=== PATIENT | male | born 1950 | race African-American/Black ===

== ENCOUNTER 2016-06-27 14:29 | Emergency (ER) | payer MEDICARE ==
[~2016-06-27 14:29] MED LIST: AMLO10TA2 PO; AMLODIPINE; ATOR20TA58 PO; DOXA2TAB2 PO; IBUP-1027 PO; LOVASTATIN; OXYC-244 PO; OXYC-323 PO; TRIA1TAB5 PO; TRIAMTERENE
--- NOTE | 2016-06-27 15:24 | PHYS DOC ---
Past Medical History Past Medical History: High Cholesterol, Hypertension Past Surgical History: Other Additional Past Surgical Histo: BILAT ELBOW SX, R CARPAL TUNNEL, R ACHILLES, L KNEE SX Alcohol Use: None Drug Use: None Adult General Chief Complaint Chief Complaint: CHEST PAIN HPI HPI 66-year-old male has several day history of cough congestion and upper respiratory type symptoms. He states over the last 2 days he's got some burning in his esophagus and a dry hacking cough. Denies any fever chills or sweats. He' s had no significant shortness of breath dyspnea on exertion. He states he is not currently having any pain and he says the pain seems to be worse when he lies flat. He denies any abdominal pain. He states the primary thing that is bothering him now is the cough. [] Review of Systems Review of Systems Constitutional: Denies fever or chills [] Eyes: Denies change in visual acuity, redness, or eye pain [] HENT: Denies nasal congestion or sore throat [] Respiratory: Denies cough or shortness of breath [] Cardiovascular: No additional information not addressed in HPI [] GI: Denies abdominal pain, nausea, vomiting, bloody stools or diarrhea [] : Denies dysuria or hematuria [] Musculoskeletal: Denies back pain or joint pain [] Integument: Denies rash or skin lesions [] Neurologic: Denies headache, focal weakness or sensory changes [] Endocrine: Denies polyuria or polydipsia [] Allergies Allergies Allergies Coded Allergies Type Severity Reaction Last Updated Verified codeine Allergy Intermediate Itching 02/15/15 No Physical Exam Physical Exam Constitutional: Well developed, well nourished, no acute distress, non-toxic appearance. [] HENT: Normocephalic, atraumatic, bilateral external ears normal, oropharynx moist, no oral exudates, nose normal. [] Eyes: PERRLA, EOMI, conjunctiva normal, no discharge. [] Neck: Normal range of motion, no tenderness, supple, no stridor. [] Cardiovascular:Heart rate regular rhythm, no murmur [] Lungs & Thorax: Bilateral breath sounds clear to auscultation [] Abdomen: Bowel sounds normal, soft, no tenderness, no masses, no pulsatile masses. [] Skin: Warm, dry, no erythema, no rash. [] Back: No tenderness, no CVA tenderness. [] Extremities: No tenderness, no cyanosis, no clubbing, ROM intact, no edema. [] Neurologic: Alert and oriented X 3, normal motor function, normal sensory function, no focal deficits noted. [] Psychologic: Affect normal, judgement normal, mood normal. [] Current Patient Data Vital Signs Vital Signs Date Time Temp Pulse Resp B/P Pulse Ox O2 Delivery O2 Flow Rate FiO2 06/27/16 14:41 98.2 78 20 149/76 95 Room Air 98.2 Lab Values Laboratory Tests Test 06/27/16 14:55 White Blood Count 5.0x10^3/uL (4.0-11.0) Red Blood Count 5.55x10^6/uL (4.30-5.70) Hemoglobin 14.5g/dL (13.0-17.5) Hematocrit 44.8% (39.0-53.0) Mean Corpuscular Volume 81fL (79-100) Mean Corpuscular Hemoglobin 26pg (25-35) Mean Corpuscular Hemoglobin Concent 32g/dL (31-37) Red Cell Distribution Width 15.1% (11.5-14.5) H Platelet Count 183x10^3/uL (140-400) Neutrophils (%) (Auto) 52% (31-73) Lymphocytes (%) (Auto) 24% (24-48) Monocytes (%) (Auto) 15% (0-9) H Eosinophils (%) (Auto) 8% (0-3) H Basophils (%) (Auto) 1% (0-3) Neutrophils # (Auto) 2.6x10^3uL (1.8-7.7) Lymphocytes # (Auto) 1.2x10^3/uL (1.0-4.8) Monocytes # (Auto) 0.7x10^3/uL (0.0-1.1) Eosinophils # (Auto) 0.4x10^3/uL (0.0-0.7) Basophils # (Auto) 0.1x10^3/uL (0.0-0.2) Platelet Estimate Pending Sodium Level 142mmol/L (136-145) Potassium Level 3.6mmol/L (3.5-5.1) Chloride Level 104mmol/L (98-107) Carbon Dioxide Level 31mmol/L (21-32) Anion Gap 7 (6-14) Blood Urea Nitrogen 17mg/dL (8-26) Creatinine 1.6mg/dL (0.7-1.3) H Estimated GFR (Cockcroft-Gault) 52.8 BUN/Creatinine Ratio 11 (6-20) Glucose Level 126mg/dL (70-99) H Calcium Level 9.3mg/dL (8.5-10.1) Total Bilirubin 0.4mg/dL (0.2-1.0) Aspartate Amino Transferase (AST) 43U/L (15-37) H Alanine Aminotransferase (ALT) 66U/L (16-63) H Alkaline Phosphatase 60U/L (46-116) Troponin I Quantitative < 0.017ng/mL (0.000-0.055) CF-Ipw-W-Type Natriuretic Peptide 18pg/mL (0-124) Total Protein 7.9g/dL (6.4-8.2) Albumin 3.9g/dL (3.4-5.0) Albumin/Globulin Ratio 1.0 (1.0-1.7) Laboratory Tests 06/27/16 14:55 Laboratory Tests 06/27/16 14:55 EKG EKG [EKG: Normal sinus rhythm rate of [address]-T changes] Radiology/Procedures Radiology/Procedures [] Impressions: PROCEDURE: CHEST AP ONLY Portable chest, 06/27/2016: History: Flulike symptoms Comparison is made to a study from 02/04/2015. The heart size and pulmonary vascularity are normal. No pulmonary infiltrates are seen. There is no evidence of pleural fluid. IMPRESSION: No acute cardiopulmonary abnormality is detected. Course & Med Decision Making Course & Med Decision Making Pertinent Labs and Imaging studies reviewed. (See chart for details) [] Dragon Disclaimer Dragon Disclaimer This electronic medical record was generated, in whole or in part, using a voice recognition dictation system. Departure Departure Impression: Primary Impression: Upper respiratory infection Additional Impression: Gastroesophageal reflux disease Disposition: HOME, SELF-CARE Condition: STABLE Referrals: MIGUELINA DE SOUZA MD (PCP) Patient Instructions: Upper Respiratory Infection, Adult Additional Instructions: Thank you for allowing us to participate in your care today. Followup with your primary care physician in 3 days if your symptoms do not improve. Return to the emergency department you have any new or concerning findings. This should be evaluated by the primary care physician and any necessary consulting services for continued management within a few days after discharge. Return to emergency room if you have any new or concerning symptoms including but not limited to fever, chills, nausea, vomiting, intractable pain, any new rashes, chest pain, shortness of air, uncontrolled bleeding, difficulty breathing, and/or vision loss. You may have been prescribed medication that can change in your level of thinking and ability to operate machinery. These medications include hydrocodone and Ativan. Also, Benadryl has been known to do this as well. Be sure to check with your pharmacist and ask if the medications you've prescribed can affect your level of consciousness. I recommend not operating heavy machinery or driving while on medication such as these. Scripts Ranitidine Hcl (Zantac)300 Mg Tablet1 Tab PO QHS reflux #90 TAB Ref 3 Prov:ANA MARÍA GOODRICH DO 06/27/16 Albuterol Sulfate (Proventil Hfa Inhaler)6.7 Gm Hfa.aer.ad1 Puff IH PRN Q4HRS PRN asthma #1 INHALER NS Prov:ANA MARÍA GOODRICH DO 06/27/16 Problem Qualifiers Primary Impression: Upper respiratory infection URI type: unspecified viral URI Qualified Code: J06.9 - Acute upper respiratory infection, unspecified Additional Impression: Gastroesophageal reflux disease Esophagitis presence: without esophagitis Qualified Code: K21.9 - Gastro- esophageal reflux disease without esophagitis ANA MARÍA GOODRICH DO Jun 27, 2016 15:24
[2016-06-27 15:34] LABS: BASO # 0.1 x10^3/uL (0.0-0.2); BASO % 1 % (0-3); EOS % 8 % (0-3); HEMATOCRIT 44.8 % (39.0-53.0); HEMOGLOBIN 14.5 g/dL (13.0-17.5); LYMPH # 1.2 x10^3/uL (1.0-4.8); LYMPH % 24 % (24-48); MEAN CORPUSCULAR HEMOGLOBIN 26 pg (25-35); MEAN CORPUSCULAR HGB CONC 32 g/dL (31-37); MEAN CORPUSCULAR VOLUME 81 fL (79-100); MONO % 15 % (0-9); NEUT % 52 % (31-73); PLATELET COUNT 183 x10^3/uL (140-400); RED BLOOD COUNT 5.55 x10^6/uL (4.30-5.70); RED CELL DISTRIBUTION WIDTH 15.1 % (11.5-14.5)
--- NOTE | 2016-06-27 15:37 | RAD ---
Portable chest, 06/27/2016: History: Flulike symptoms Comparison is made to a study from 02/04/2015. The heart size and pulmonary vascularity are normal. No pulmonary infiltrates are seen. There is no evidence of pleural fluid. IMPRESSION: No acute cardiopulmonary abnormality is detected.
[2016-06-27 15:42] LABS: CALCIUM 9.3 mg/dL (8.5-10.1); CREATININE 1.6 mg/dL (0.7-1.3); GFR 52.8; POTASSIUM 3.6 mmol/L (3.5-5.1)
[2016-06-27 15:49] LABS: ALBUMIN 3.9 g/dL (3.4-5.0); TOTAL BILIRUBIN 0.4 mg/dL (0.2-1.0); TOTAL PROTEIN 7.9 g/dL (6.4-8.2)
--- NOTE | 2016-06-27 16:33 | EKG ---
[facility] [address] [place] [address] Test Date: 2016-06-27 Test Time: 14:36:04 Pat Name: FRANKLIN COVINGTON Department: Room: Gender: M Managed Care Director: : 1950 Requested By: ANA MARÍA GOODRICH Order Number: [id number] Reading MD: Measurements Intervals [place] Rate: 79 P: 57 [place]: 184 QRS: 36 QRSD: 84 T: 69 QT: 374 QTc: 435 Interpretive Statements SINUS RHYTHM QRS(T) CONTOUR ABNORMALITY CONSIDER INFERIOR MYOCARDIAL DAMAGE T ABNORMALITY IN HIGH LATERAL LEADS RI6.01 Unconfirmed report No previous ECG available for comparison
[2016-06-27 16:45] VITALS: BP 128/61
[2016-06-27] MEDS ORDERED: RANI300T3 PO (17:24)
[2016-06-27] MEDS ORDERED: PROVENTIL HFA6.7 GM IH (17:24)
[2016-06-27 18:12] LABS: PLT ESTIMATE ADEQUATE (ADEQUATE)
== END 2016-06-27 17:46 | disposition home or self-care (01) ==
LOC: ER 14:29
DX: J06.9 Acute upper respiratory infection, unspecified (principal); K21.9 Gastro-esophageal reflux disease without esophagitis; E78.00 Pure hypercholesterolemia, unspecified; I10 Essential (primary) hypertension; Z88.5 Allergy status to narcotic agent
CPT/HCPCS: 36415; 71010; 80053; 83880; 84484; 85007; 85027; 93005; 99285

== ENCOUNTER 2016-12-02 19:35 | Inpatient (IN) | payer BC, MEDICARE ==
[~2016-12-02] VITALS: Ht 172.7 cm; Wt 111.7 kg
[~2016-12-02 19:35] MED LIST changes: -OXYC-244 PO; +OXYC-327 PO; +PROVENTIL HFA6.7 GM IH; +RANI300T3 PO
[2016-12-02 19:57] LABS: BASO # 0.1 x10^3/uL (0.0-0.2); BASO % 1 % (0-3); EOS % 16 % (0-3); HEMATOCRIT 44.3 % (39.0-53.0); HEMOGLOBIN 14.2 g/dL (13.0-17.5); LYMPH # 2.3 x10^3/uL (1.0-4.8); LYMPH % 36 % (24-48); MEAN CORPUSCULAR HEMOGLOBIN 27 pg (25-35); MEAN CORPUSCULAR HGB CONC 32 g/dL (31-37); MEAN CORPUSCULAR VOLUME 83 fL (79-100); MONO % 9 % (0-9); NEUT % 38 % (31-73); PLATELET COUNT 199 x10^3/uL (140-400); RED BLOOD COUNT 5.33 x10^6/uL (4.30-5.70); RED CELL DISTRIBUTION WIDTH 15.1 % (11.5-14.5); WHITE BLOOD COUNT 6.4 x10^3/uL (4.0-11.0)
[2016-12-02] MEDS ORDERED: IV NORMAL SALINE 1000ML BAG 1,000 ML IV SCH (20:00)
[2016-12-02] MEDS ORDERED: methylPREDNISolone SOD SUCC PF 125 MG/2 ML VIAL. ONE (20:21)
[2016-12-02] MEDS ORDERED: IPRATRPIUM/ALBUTEROL 0.5/2.5MG 3 ML NEBU. ONE (20:24)
[2016-12-02] MEDS ORDERED: methylPREDNISolone SOD SUCC PF 125 MG/2 ML VIAL. IV ONE (20:30)
[2016-12-02] MEDS ORDERED: IPRATRPIUM/ALBUTEROL 0.5/2.5MG 3 ML NEBU. NEB ONE ×2 (20:30→23:00)
[2016-12-02] MEDS ORDERED: ONDANSETRON PF 4 MG/2 ML VIAL. ONE (20:43)
[2016-12-02 20:56] LABS: CALCIUM 9.9 mg/dL (8.5-10.1); CREATININE 1.4 mg/dL (0.7-1.3); GFR 61.5; POTASSIUM 3.2 mmol/L (3.5-5.1)
[2016-12-02] MEDS ORDERED: ONDANSETRON PF 4 MG/2 ML VIAL. IV ONE (21:00)
[2016-12-02 21:02] LABS: ALBUMIN 3.9 g/dL (3.4-5.0); TOTAL BILIRUBIN 0.4 mg/dL (0.2-1.0); TOTAL PROTEIN 7.7 g/dL (6.4-8.2)
--- NOTE | 2016-12-02 21:51 | PHYS DOC ---
Past Medical History Past Medical History: High Cholesterol, Hypertension Past Surgical History: Other Additional Past Surgical Histo: BILAT ELBOW SX, R CARPAL TUNNEL, R ACHILLES, L KNEE SX Alcohol Use: None Drug Use: None Adult General Chief Complaint Chief Complaint: Palpitations HPI HPI 66-year-old male with a history of COPD now presents to the emergency department complaining of palpitations and wheezing. He has been using a metered dose inhaler but states he's had a productive cough green sputum as well. No fevers chills sweats or shaking chills. He is more short of breath than normal. Denies chest pain of any kind. Patient's reports intermittent palpitations. He has no lower extremity swelling MARAVILLA or orthopnea. He does not have a obstetrics specialist nor has he had a history of arrhythmia Review of Systems Review of Systems Constitutional: Denies fever or chills [] Eyes: Denies change in visual acuity, redness, or eye pain [] HENT: Denies nasal congestion or sore throat [] Respiratory: Denies cough or shortness of breath [] Cardiovascular: No additional information not addressed in HPI [] GI: Denies abdominal pain, nausea, vomiting, bloody stools or diarrhea [] : Denies dysuria or hematuria [] Musculoskeletal: Denies back pain or joint pain [] Integument: Denies rash or skin lesions [] Neurologic: Denies headache, focal weakness or sensory changes [] Endocrine: Denies polyuria or polydipsia [] Current Medications Current Medications Current Medications Medications (Trade) Dose Ordered Sig/Fanny Start Time Stop Time Status Last Admin Dose Admin Albuterol/ Ipratropium (Duoneb) 3 ml 1X ONCE 12/02/16 20:30 12/02/16 20:32 DC 12/02/16 20:33 3 ML Methylprednisolone Sodium Succinate (SOLU-Medrol 125MG VIAL) 125 mg 1X ONCE 12/02/16 20:30 12/02/16 20:32 DC 12/02/16 20:35 125 MG Ondansetron HCl (Zofran) 4 mg 1X ONCE 12/02/16 21:00 12/02/16 21:01 DC 12/02/16 20:48 4 MG Sodium Chloride 1,000 ml @ 100 mls/hr Q10H 12/02/16 20:00 12/03/16 05:59 12/02/16 20:33 100 MLS/HR Allergies Allergies Allergies Coded Allergies Type Severity Reaction Last Updated Verified codeine Allergy Intermediate Itching 02/15/15 No Physical Exam Physical Exam Well appearing male in mild tachypnea with bilateral bronchospasm. Scattered rhonchi. Hypoxic 89% on room air 94% on 2 L. Regular rate and rhythm. Occasional bigeminy on the monitor with spontaneous resolution. Constitutional: Well developed, well nourished, no acute distress, non-toxic appearance. [] HENT: Normocephalic, atraumatic, bilateral external ears normal, oropharynx moist, no oral exudates, nose normal. [] Eyes: PERRLA, EOMI, conjunctiva normal, no discharge. [] Neck: Normal range of motion, no tenderness, supple, no stridor. [] Cardiovascular:Heart rate regular rhythm, no murmur [] Lungs & Thorax: Bilateral breath sounds with wheezing and bronchospasm and scattered rhonchi Abdomen: Bowel sounds normal, soft, no tenderness, no masses, no pulsatile masses. [] Skin: Warm, dry, no erythema, no rash. [] Back: No tenderness, no CVA tenderness. [] Extremities: No tenderness, no cyanosis, no clubbing, ROM intact, no edema. [] Neurologic: Alert and oriented X 3, normal motor function, normal sensory function, no focal deficits noted. [] Psychologic: Affect normal, judgement normal, mood normal. [] Current Patient Data Vital Signs Vital Signs Date Time Temp Pulse Resp B/P (MAP) Pulse Ox O2 Delivery O2 Flow Rate FiO2 12/02/16 20:30 94 Nasal Cannula 2.0 12/02/16 19:40 98.3 68 20 180/84 (116) 98.3 Lab Values Laboratory Tests Test 12/02/16 19:46 12/02/16 20:25 White Blood Count 6.4 x10^3/uL (4.0-11.0) Red Blood Count 5.33 x10^6/uL (4.30-5.70) Hemoglobin 14.2 g/dL (13.0-17.5) Hematocrit 44.3 % (39.0-53.0) Mean Corpuscular Volume 83 fL (79-100) Mean Corpuscular Hemoglobin 27 pg (25-35) Mean Corpuscular Hemoglobin Concent 32 g/dL (31-37) Red Cell Distribution Width 15.1 % (11.5-14.5) H Platelet Count 199 x10^3/uL (140-400) Neutrophils (%) (Auto) 38 % (31-73) Lymphocytes (%) (Auto) 36 % (24-48) Monocytes (%) (Auto) 9 % (0-9) Eosinophils (%) (Auto) 16 % (0-3) H Basophils (%) (Auto) 1 % (0-3) Neutrophils # (Auto) 2.5 x10^3uL (1.8-7.7) Lymphocytes # (Auto) 2.3 x10^3/uL (1.0-4.8) Monocytes # (Auto) 0.6 x10^3/uL (0.0-1.1) Eosinophils # (Auto) 1.0 x10^3/uL (0.0-0.7) H Basophils # (Auto) 0.1 x10^3/uL (0.0-0.2) Sodium Level 142 mmol/L (136-145) Potassium Level 3.2 mmol/L (3.5-5.1) L Chloride Level 103 mmol/L (98-107) Carbon Dioxide Level 28 mmol/L (21-32) Anion Gap 11 (6-14) Blood Urea Nitrogen 14 mg/dL (8-26) Creatinine 1.4 mg/dL (0.7-1.3) H Estimated GFR (Cockcroft-Gault) 61.5 BUN/Creatinine Ratio 10 (6-20) Glucose Level 112 mg/dL (70-99) H Calcium Level 9.9 mg/dL (8.5-10.1) Total Bilirubin 0.4 mg/dL (0.2-1.0) Aspartate Amino Transferase (AST) 38 U/L (15-37) H Alanine Aminotransferase (ALT) 56 U/L (16-63) Alkaline Phosphatase 74 U/L (46-116) Troponin I Quantitative < 0.017 ng/mL (0.000-0.055) Total Protein 7.7 g/dL (6.4-8.2) Albumin 3.9 g/dL (3.4-5.0) Albumin/Globulin Ratio 1.0 (1.0-1.7) Laboratory Tests 12/02/16 19:46 Laboratory Tests 12/02/16 20:25 EKG EKG [] Radiology/Procedures Radiology/Procedures [] Course & Med Decision Making Course & Med Decision Making Pertinent Labs and Imaging studies reviewed. (See chart for details) Signs and symptoms consistent with COPD exacerbation refractory to nebulized therapy and respiratory treatments. Steroids given. X-ray unremarkable. Zithromax will be administered. Persistent hypoxia after treatment. 94% on 2 L nasal cannula. Patient's bigeminy unremarkable with spontaneous resolution. EKG benign with negative troponin. Case discussed with patient's primary care doctor who is aware of history and findings and agrees with inpatient admission with Zithromax by mouth treatment for bronchitis supplemental oxygen and continued respiratory therapy. [] Dragon Disclaimer Dragon Disclaimer This electronic medical record was generated, in whole or in part, using a voice recognition dictation system. Departure Departure Impression: Primary Impression: COPD exacerbation Additional Impressions: Hypoxia Palpitations Bigeminy Disposition: ADMITTED INPATIENT Admitting Physician: Abdirahman Dejesus Condition: STABLE Referrals: MIGUELINA DE SOUZA MD (PCP) Problem Qualifiers FRANCINE KOHLER MD Dec 02, 2016 21:51
[2016-12-02] MEDS ORDERED: POTASSIUM CHLORIDE 20 MEQ TABLET.ER. PO ONE (22:00)
[2016-12-02 22:50] VITALS: BP 142/82
[2016-12-02] MEDS ORDERED: AZITHROMYCIN 250 MG TABLET. PO ONE (23:00)
[2016-12-03] MEDS ORDERED: FLUO10TA PO (01:43)
[2016-12-03] MEDS ORDERED: DEXA5DRO4 OP (01:43)
[2016-12-03] MEDS ORDERED: ZOLP10TA PO (01:43)
[2016-12-03 03:15] VITALS: BP 146/80
--- NOTE | 2016-12-03 06:10 | EKG ---
[facility] [address] [place] [address] Test Date: 2016-12-02 Test Time: 19:40:24 Pat Name: FRANKLIN COVINGTON Department: Room: 426 1 Gender: M Surveillance Specialist: : 1950 Requested By: FRANCINE KOHLER Order Number: [id number] Reading MD: Lizzeth Arias Measurements Intervals [place] Rate: 69 P: 34 TN: 176 QRS: 36 QRSD: 86 T: 74 QT: 432 QTc: 465 Interpretive Statements SINUS RHYTHM NORMAL EKG Electronically Signed On 12-04-2016 20:08:31 CDT by Lizzeth Arias
[2016-12-03 07:00] VITALS: BP 147/74
--- NOTE | 2016-12-03 08:53 | PDOC1 ---
History and Physical Date of Admission Date of Admission DATE: 12/02/16 TIME: 08:51 History of Present Illness History of Present Illness dyspnea Social History Smoke: No Current Problem List Problem List Problems Medical Problems: (1) Bigeminy Status: Acute (2) COPD exacerbation Status: Acute (3) Hypoxia Status: Acute (4) Palpitations Status: Acute Problems: Current Medications Current Medications Current Medications Sodium Chloride 1,000 ml @ 100 mls/hr Q10H IV Last administered on 12/02/16 20 :33; Start 12/02/16 at 20:00; Stop 12/03/16 at 05:59; Status DC Methylprednisolone Sodium Succinate (SOLU-Medrol 125MG VIAL) 125 mg STK-MED ONCE .ROUTE ; Start 12/02/16 at 20:21; Stop 12/02/16 at 20:22; Status DC Albuterol/ Ipratropium (Duoneb) 3 ml STK-MED ONCE .ROUTE ; Start 12/02/16 at 20: 24; Stop 12/02/16 at 20:25; Status DC Albuterol/ Ipratropium (Duoneb) 3 ml 1X ONCE NEB Last administered on 20:33; Start 12/02/16 at 20:30; Stop 12/02/16 at 20:32; Status DC Methylprednisolone Sodium Succinate (SOLU-Medrol 125MG VIAL) 125 mg 1X ONCE IV Last administered on 12/02/16 20:35; Start 12/02/16 at 20:30; Stop 12/02/16 at 20:32; Status DC Ondansetron HCl (Zofran) 4 mg STK-MED ONCE .ROUTE ; Start 12/02/16 at 20:43; Stop 12/02/16 at 20:44; Status DC Ondansetron HCl (Zofran) 4 mg 1X ONCE IV Last administered on 12/02/16 20:48; Start 12/02/16 at 21:00; Stop 12/02/16 at 21:01; Status DC Potassium Chloride (Klor-Con) 40 meq 1X ONCE PO Last administered on 12/02/16 22:25; Start 12/02/16 at 22:00; Stop 12/02/16 at 22:01; Status DC Albuterol/ Ipratropium (Duoneb) 3 ml 1X ONCE NEB Last administered on 23:00; Start 12/02/16 at 23:00; Stop 12/02/16 at 23:01; Status DC Azithromycin (Zithromax) 500 mg 1X ONCE PO Last administered on 12/02/16 23:04 ; Start 12/02/16 at 23:00; Stop 12/02/16 at 23:01; Status DC Albuterol Sulfate (Ventolin Neb Soln) 2.5 mg RTQID NEB ; Start 12/03/16 at 12:00 ; Status UNV Active Scripts Active Proventil Hfa Inhaler (Albuterol Sulfate) 6.7 Gm Hfa.aer.ad 1 Puff IH PRN Q4HRS PRN Reported Ambien (Zolpidem Tartrate) 10 Mg Tablet 1 Tab PO QHS Dexamethasone Sodium Phosphate (Dexamethasone Sod Phosphate) 5 Ml Drops 0.1 % OP Fluoxetine Hcl 10 Mg Tablet 1 Tab PO DAILY Atorvastatin Calcium 20 Mg Tablet 1 Tab PO DAILY Held today due to low blood pressure. May resume at home as directed. Amlodipine Besylate 10 Mg Tablet 1 Tab PO DAILY Held today due to loww blood pressure. May resume at home as directed. Triamterene-Hctz 75-50 Mg Tab (Triamterene/Hydrochlorothiazid) 1 Each Tablet 1 Tab PO DAILY LAST DOSE GIVEN: DATE:10-06-14 TIME:9:00 a.m. NEXT DOSE DUE: DATE:10-07-14 TIME:9:00 a.m. Allergies Allergies: Coded Allergies: codeine (Unverified Allergy, Intermediate, Itching, 02/15/15) Vitals Vitals Vital Signs Date Time Temp Pulse Resp B/P (MAP) Pulse Ox O2 Delivery O2 Flow Rate FiO2 12/03/16 07:00 97.3 79 20 147/74 (98) 97 Room Air 97.3 12/02/16 23:50 2.0 Labs Labs Laboratory Tests Test 12/02/16 19:46 12/02/16 20:25 White Blood Count 6.4 x10^3/uL (4.0-11.0) Red Blood Count 5.33 x10^6/uL (4.30-5.70) Hemoglobin 14.2 g/dL (13.0-17.5) Hematocrit 44.3 % (39.0-53.0) Mean Corpuscular Volume 83 fL (79-100) Mean Corpuscular Hemoglobin 27 pg (25-35) Mean Corpuscular Hemoglobin Concent 32 g/dL (31-37) Red Cell Distribution Width 15.1 % (11.5-14.5) Platelet Count 199 x10^3/uL (140-400) Neutrophils (%) (Auto) 38 % (31-73) Lymphocytes (%) (Auto) 36 % (24-48) Monocytes (%) (Auto) 9 % (0-9) Eosinophils (%) (Auto) 16 % (0-3) Basophils (%) (Auto) 1 % (0-3) Neutrophils # (Auto) 2.5 x10^3uL (1.8-7.7) Lymphocytes # (Auto) 2.3 x10^3/uL (1.0-4.8) Monocytes # (Auto) 0.6 x10^3/uL (0.0-1.1) Eosinophils # (Auto) 1.0 x10^3/uL (0.0-0.7) Basophils # (Auto) 0.1 x10^3/uL (0.0-0.2) Sodium Level 142 mmol/L (136-145) Potassium Level 3.2 mmol/L (3.5-5.1) Chloride Level 103 mmol/L (98-107) Carbon Dioxide Level 28 mmol/L (21-32) Anion Gap 11 (6-14) Blood Urea Nitrogen 14 mg/dL (8-26) Creatinine 1.4 mg/dL (0.7-1.3) Estimated GFR (Cockcroft-Gault) 61.5 BUN/Creatinine Ratio 10 (6-20) Glucose Level 112 mg/dL (70-99) Calcium Level 9.9 mg/dL (8.5-10.1) Total Bilirubin 0.4 mg/dL (0.2-1.0) Aspartate Amino Transf (AST/SGOT) 38 U/L (15-37) Alanine Aminotransferase (ALT/SGPT) 56 U/L (16-63) Alkaline Phosphatase 74 U/L (46-116) Troponin I Quantitative < 0.017 ng/mL (0.000-0.055) Total Protein 7.7 g/dL (6.4-8.2) Albumin 3.9 g/dL (3.4-5.0) Albumin/Globulin Ratio 1.0 (1.0-1.7) Laboratory Tests Test 12/02/16 19:46 12/02/16 20:25 White Blood Count 6.4 x10^3/uL (4.0-11.0) Red Blood Count 5.33 x10^6/uL (4.30-5.70) Hemoglobin 14.2 g/dL (13.0-17.5) Hematocrit 44.3 % (39.0-53.0) Mean Corpuscular Volume 83 fL (79-100) Mean Corpuscular Hemoglobin 27 pg (25-35) Mean Corpuscular Hemoglobin Concent 32 g/dL (31-37) Red Cell Distribution Width 15.1 % (11.5-14.5) Platelet Count 199 x10^3/uL (140-400) Neutrophils (%) (Auto) 38 % (31-73) Lymphocytes (%) (Auto) 36 % (24-48) Monocytes (%) (Auto) 9 % (0-9) Eosinophils (%) (Auto) 16 % (0-3) Basophils (%) (Auto) 1 % (0-3) Neutrophils # (Auto) 2.5 x10^3uL (1.8-7.7) Lymphocytes # (Auto) 2.3 x10^3/uL (1.0-4.8) Monocytes # (Auto) 0.6 x10^3/uL (0.0-1.1) Eosinophils # (Auto) 1.0 x10^3/uL (0.0-0.7) Basophils # (Auto) 0.1 x10^3/uL (0.0-0.2) Sodium Level 142 mmol/L (136-145) Potassium Level 3.2 mmol/L (3.5-5.1) Chloride Level 103 mmol/L (98-107) Carbon Dioxide Level 28 mmol/L (21-32) Anion Gap 11 (6-14) Blood Urea Nitrogen 14 mg/dL (8-26) Creatinine 1.4 mg/dL (0.7-1.3) Estimated GFR (Cockcroft-Gault) 61.5 BUN/Creatinine Ratio 10 (6-20) Glucose Level 112 mg/dL (70-99) Calcium Level 9.9 mg/dL (8.5-10.1) Total Bilirubin 0.4 mg/dL (0.2-1.0) Aspartate Amino Transf (AST/SGOT) 38 U/L (15-37) Alanine Aminotransferase (ALT/SGPT) 56 U/L (16-63) Alkaline Phosphatase 74 U/L (46-116) Troponin I Quantitative < 0.017 ng/mL (0.000-0.055) Total Protein 7.7 g/dL (6.4-8.2) Albumin 3.9 g/dL (3.4-5.0) Albumin/Globulin Ratio 1.0 (1.0-1.7) VTE Prophylaxis Ordered VTE Prophylaxis Devices: No VTE Pharmacological Prophylaxi: No Assessment/Plan Assessment/Plan diffuse wheezing, no edema, suspect asthma but will do echo, ct chest- renal status same- iv solumedrol now MIGUELINA DE SOUZA MD Dec 03, 2016 08:53
--- NOTE | 2016-12-03 08:58 | RAD ---
Portable chest, 12/02/2016: History: Cough, wheezing, chest palpitations Comparison is made to a study from 06/27/2016. The heart size and pulmonary vascularity are normal. No pulmonary infiltrates are seen. There is no evidence of pleural fluid. IMPRESSION: No acute cardiopulmonary abnormality is detected.
--- NOTE | 2016-12-03 09:05 | PDOC ---
Provider Note Provider Note 16 % eos in wbc make allergic asthma most likely dx MIGUELINA DE SOUZA MD Dec 03, 2016 09:05
[2016-12-03] MEDS ORDERED: IOHEXOL 300 MG/ML 75 ML VIAL IV ONE (09:30)
[2016-12-03] MEDS ORDERED: CONTRAST GIVEN MC PRN (09:45)
[2016-12-03] MEDS: methylPREDNISolone SOD SUCC PF 40 MG/ML VIAL. IV SCH ×2 (10:37→20:43)
--- NOTE | 2016-12-03 10:41 | RAD ---
CT of the chest with contrast, 12/03/2016: History: Dyspnea Multidetector CT imaging was performed following IV bolus injection of iodinated contrast material. The thoracic aorta is of normal caliber. There is minimal calcific plaquing of the aorta and coronary arteries. The heart size is unremarkable. There are hilar calcifications due to old granulomatous disease. No mediastinal or hilar adenopathy is seen. There are a few scattered linear opacities in the lungs compatible with scars. This includes a streaky opacity in the inferior lingular region on the left. There is a cluster of tiny nodular opacities in the posterior aspect of the left upper lobe as best seen on coronal image 46 of series #4. These are likely on a postinflammatory basis. No pulmonary mass is identified. There is no evidence of pleural fluid. There are mild scattered degenerative changes in the spine. IMPRESSION: 1. Mild streaky inferior lingular opacities on the left suggesting scarring and/or atelectasis. 2. Cluster of tiny nodular opacities in the left upper lobe is probably due to old granulomatous disease.. 3. Minimal coronary artery calcifications. PQRS Compliance Statement: One or more of the following individualized dose reduction techniques were utilized for this examination: 1. Automated exposure control 2. Adjustment of the mA and/or kV according to patient size 3. Use of iterative reconstruction technique
[2016-12-03] MEDS: ALBUTEROL SULFATE 2.5 MG/3 ML NEBU. NEB SCH ×3 (10:57→19:20)
[2016-12-03 11:00] VITALS: BP 137/80
[2016-12-03 15:04] VITALS: BP 134/69
--- NOTE | 2016-12-03 16:03 | CARD ---
APPROVED REPORT EXAM: Two-dimensional and M-mode echocardiogram with Doppler and color Doppler. Other Information Quality : Average Rhythm : NSR INDICATION Dyspnea 2D DIMENSIONS RVDd3.4 (2.9-3.5cm)Left Atrium(2D)4.0 (1.6-4.0cm) IVSd1.4 (0.7-1.1cm)Aortic Root(2D)2.7 (2.0-3.7cm) LVDd5.0 (3.9-5.9cm)LVOT Diameter2.1 (1.8-2.4cm) PWd1.4 (0.7-1.1cm)LVDs3.2 (2.5-4.0cm) FS (%) 35.4 %SV75.0 ml LVEF(%)64.5 (>50%) Aortic Valve AoV Peak Stone.135.3cm/sAoV VTI25.3cm AO Peak GR.7.3mmHgLVOT Peak Stone.109.5cm/s LVOT VTI 21.63cmAO Mean GR.4mmHg GREGORY (VMAX)2.26wb5YNU (VTI)2.83cm2 Mitral Valve MV E Ciiypcsy31.2cm/sMV DECEL [id number] MV A Sfgoytff52.1cm/sMV WXK45iv E/A Ratio1.0MV A Btzknmpq468ik MVA (PHT)4.26cm2 TDI E/Lateral E'8.9E/Medial E'9.9 Pulmonary Valve PV Peak Cclwttgd262.0cm/sPV Peak Grad.7mmHg RVOT VTI23.4cm Pulmonary Vein S1 Qvtnvoie76.7cm/sD2 Knvjirhd12.2cm/s LEFT VENTRICLE The left ventricle is normal size. There is mild concentric left ventricular hypertrophy. Left ventri ervin systolic function is normal. The Ejection Fraction is 60-65%. There is normal LV segmental wall m otion. The left ventricular diastolic function and filling is normal for age. There is no ventricular septal defect visualized. RIGHT VENTRICLE The right ventricle is normal size. The right ventricular systolic function is normal. ATRIA The left atrium size is normal. The right atrium size is normal. The interatrial septum is intact wit h no evidence for an atrial septal defect or patent foramen ovale as noted on 2-D or Doppler imaging. AORTIC VALVE The aortic valve is normal in structure and function. The aortic valve is trileaflet. Doppler and Col or Flow revealed no significant aortic regurgitation. There is no significant aortic valvular stenosi s. MITRAL VALVE The mitral valve is normal in structure and function. There is no mitral valve stenosis. Doppler and Color Flow revealed no mitral valve regurgitation noted. TRICUSPID VALVE The tricuspid valve is normal in structure and function. Doppler and Color Flow revealed no tricuspid valve regurgitation noted. Unable to estimate PA pressure. There is no tricuspid valve stenosis. PULMONIC VALVE The pulmonic valve is not well visualized. Doppler and Color Flow revealed mild pulmonic valvular reg urgitation. There is no pulmonic valvular stenosis. GREAT VESSELS The aortic root is normal in size. The ascending aorta is normal in size. Normal pulmonary venous south w (Doppler). The IVC is normal in size and collapses >50% with inspiration. PERICARDIAL EFFUSION There is no evidence of significant pericardial effusion. Critical Notification Critical Value: No <Conclusion> Left ventricle systolic function is normal. The Ejection Fraction is 60-65%. There is normal LV segmental wall motion.
[2016-12-03 19:00] VITALS: BP 129/70
[2016-12-03] MEDS: AZITHROMYCIN 250 MG TABLET. PO SCH (20:43)
[2016-12-03 23:00] VITALS: BP 133/72
[2016-12-04] MEDS: ALBUTEROL SULFATE 2.5 MG/3 ML NEBU. NEB SCH ×4 (00:54→21:23)
[2016-12-04] MEDS ORDERED: ALBUTEROL SULFATE 2.5 MG/3 ML NEBU. NEB ONE (01:15)
[2016-12-04 03:00] VITALS: BP 131/72
--- NOTE | 2016-12-04 05:11 | ACF ---
Admission Forms Criteria COPD Clinical Indications for Admission to Inpatient Care (Place 'X' for any and all applicable criteria): Admission is indicated for ANY ONE of the following (1)(2)(3): [X]I. Acute exacerbation by high-risk comorbidity (e.g., pneumonia, dysrhythmia, heart failure, pleural effusion, pneumothorax) or severe underlying COPD (e.g., steroid dependent) [ ]II. Inpatient admission required rather than observation care (see Chronic Obstructive Pulmonary Disease: Observation Care) because of ANY ONE of the following: [ ]a) New or pre-existing signs or symptoms of COPD (eg, dyspnea or Tachypnea at rest or with minimal activity) that persist despite outpatient and observation care treatment [ ]b) New-onset hypoxemia (room air SaO2 less than 90%, PO2 less than 60 mm Hg (8.0 kPa)) that persists despite outpatient and observation care treatment [ ]c) Worsening of pre-existing hypoxemia (eg, new or increased requirement for supplemental oxygen to maintain oxygenation at baseline level) that persists despite outpatient and observation care treatment, with oxygen treatment needs performable only in acute inpatient setting [ ]d) Hypercarbia (PCO2 greater than 40 mm Hg (5.3 kPa))-induced respiratory acidosis (pH less than 7.35) that persists despite outpatient and observation care treatment [ ]e) Supplemental oxygen or respiratory treatments for over 24 hours that are performable only in acute inpatient setting [ ]f) Chest tube placement with active evacuation (e.g., suction, drainage) (5) [ ]g) Other condition, treatment or monitoring requiring inpatient admission [ ]III. Planned invasive surgical or diagnostic procedures requiring acute- care hospitalization [ ]IV. Acute respiratory failure (e.g., uncompensated hypercarbia, severe hypoxemia) [ ]V. Severe comorbid condition (e.g., severe steroid myopathy, acute vertebral fracture) that has acutely worsened pulmonary function [ ]. Confusion state, lethargy, obtundation, stupor or coma Extended stay beyond goal length of stay may be needed for (31)(32): [ ]a ) Respiratory Failure. [ ]b) Severe or persisting hypoxemia or hypercarbia [ ]c) Severe or persistent dyspnea [ ]d) Comorbidities (e.g. chronic heart failure, atrial fibrillation with rapid response, pneumonia) [ ]e) Malnutrition The original [facility] content created by [facility] has been revised. The portions of the content which have been revised are identified through the use of italic text or in bold, and [facility] has neither reviewed nor approved the modified material. All other unmodified content is copyright [facility]. Please see references footnoted in the original [facility] edition 2016 Admission Criteria Met?: Yes SUNDAY GARRETT Dec 04, 2016 05:11
[2016-12-04 07:00] VITALS: BP 130/60
--- NOTE | 2016-12-04 08:23 | PDOC ---
Provider Note Provider Note less wheezing, vss- eos high, echo and ct chest normal, this is allergic asthma - cont iv steroid another day, will need advair or others as op- likely dc in am if better MIGUELINA DE SOUZA MD Dec 04, 2016 08:23
[2016-12-04] MEDS ORDERED: ALBUTEROL SULFATE 2.5 MG/3 ML NEBU. NEB PRN ×2 (08:30→17:15)
[2016-12-04] MEDS: FAMOTIDINE 20 MG TABLET. PO SCH ×2 (08:37→20:24)
[2016-12-04] MEDS: methylPREDNISolone SOD SUCC PF 40 MG/ML VIAL. IV SCH (08:38)
[2016-12-04 11:00] VITALS: BP 132/75
[2016-12-04 15:00] VITALS: BP 126/65
[2016-12-04] MEDS ORDERED: ZOLPIDEM 5 MG TABLET. PO PRN (18:30)
[2016-12-04 19:00] VITALS: BP 150/76
[2016-12-04] MEDS: AZITHROMYCIN 250 MG TABLET. PO SCH (20:24)
[2016-12-04] MEDS ORDERED: methylPREDNISolone SOD SUCC PF 40 MG/ML VIAL. IV SCH (21:00)
[2016-12-04] MEDS ORDERED: ATORVASTATIN CALCIUM 20 MG TABLET PO SCH (21:00)
--- NOTE | 2016-12-04 22:16 | EKG ---
[facility] [address] [place] [address] Test Date: 2016-12-04 Test Time: 17:48:00 Pat Name: FRANKLIN COVINGTON Department: Room: 426 1 Gender: M Appeals Officer: : 1950 Requested By: MIGUELINA DE SOUZA Order Number: [id number] Reading MD: Measurements Intervals Page Rate: 89 P: 142 MT: 86 QRS: 17 QRSD: 144 T: -144 QT: 412 QTc: 509 Interpretive Statements SINUS RHYTHM VENTRICULAR PREMATURE COMPLEX(ES) NON SPECIFIC INTRAVENTRICULAR BLOCK ABNORMAL ECG RI6.01 Compared to ECG 12/02/2016 19:40:24 No significant changes
[2016-12-04 23:00] VITALS: BP 141/80
[2016-12-05 07:00] VITALS: BP 129/56
[2016-12-05] MEDS: ALBUTEROL SULFATE 2.5 MG/3 ML NEBU. NEB SCH (07:48)
--- NOTE | 2016-12-05 07:51 | EKG ---
[facility] [address] [place] [address] Test Date: 2016-12-05 Test Time: 07:35:09 Pat Name: FRANKLIN COVINGTON Department: Room: 426 1 Gender: M Behavioral Health Worker: : 1950 Requested By: MIGUELINA DE SOUZA Order Number: [id number] Reading MD: Measurements Intervals [place] Rate: 66 P: 63 RI: 134 QRS: 41 QRSD: 150 T: -167 QT: 422 QTc: 444 Interpretive Statements SINUS RHYTHM CONSIDER WPW, TYPE B ST ABNORMALITY, POSSIBLE INFERIOR SUBENDOCARDIAL INJURY ABNORMAL ECG RI6.01 No previous ECG available for comparison
--- NOTE | 2016-12-05 08:26 | DISCH ---
DISCHARGE INSTRUCTIONS Condition on Discharge Condition on Discharge: Stable Activity After Discharge Activity Instructions for Disc: No restrictions Diet after Discharge Diet after Discharge: Low Sodium 4 gm Follow-Up Follow up with: dr anni Mc w MIGUELINA DE SOUZA MD Dec 05, 2016 08:25
--- NOTE | 2016-12-05 08:28 | PDOC3 ---
Discharge Summary Visit Information Date of Discharge: Dec 05, 2016 Final Diagnosis Problems Medical Problems: (1) Bigeminy Status: Acute (2) COPD exacerbation Status: Acute (3) Hypoxia Status: Acute (4) Palpitations Status: Acute asthma, not copd , is correct Brief Hospital Course Allergies Allergies Coded Allergies Type Severity Reaction Last Updated Verified codeine Allergy Intermediate Itching 02/15/15 No Vital Signs Vital Signs Date Time Temp Pulse Resp B/P (MAP) Pulse Ox O2 Delivery O2 Flow Rate FiO2 12/05/16 07:48 98 Nasal Cannula 2.0 12/04/16 23:00 97.7 74 18 141/80 (100) 97.7 Brief Hospital Course Mr. Boss is a 66 old [sex] who presented with [ ]cough, wheezing,- eos 16 %, all labs, ct chest, echo all wnl- got better w/ iv steroid, able to go to po- add advair 250 bid now, rest of meds same Discharge Information Condition at Discharge: Improved Disposition/Orders: D/C to Home Scheduled Amlodipine Besylate (Amlodipine Besylate), 1 TAB PO DAILY, (Reported) Atorvastatin Calcium (Atorvastatin Calcium), 1 TAB PO DAILY, (Reported) Fluoxetine Hcl (Fluoxetine Hcl), 1 TAB PO DAILY, (Reported) Triamterene/Hydrochlorothiazid (Triamterene-Hctz 75-50 Mg Tab), 1 TAB PO DAILY, (Reported) Zolpidem Tartrate (Ambien), 1 TAB PO QHS, (Reported) Scheduled PRN Albuterol Sulfate (Proventil Hfa Inhaler), 1 PUFF IH PRN Q4HRS PRN for asthma Miscellaneous Medications Dexamethasone Sod Phosphate (Dexamethasone Sodium Phosphate), 0.1 % OP, ( Reported) MIGUELINA DE SOUZA MD Dec 05, 2016 08:28
[2016-12-05] MEDS ORDERED: predniSONE 20 MG TABLET PO SCH (09:00)
[2016-12-05] MEDS ORDERED: FLUoxetine HCL 10 MG CAPSULE PO SCH (09:00)
== END 2016-12-05 11:30 | disposition home or self-care (01) | DRG 189 ==
LOC: ER 19:35 → 4 NORTH 21:45
PROVIDERS: ADMIT Family Medicine; ATTEND Family Medicine
DX: J96.01 Acute respiratory failure with hypoxia (principal); J45.901 Unspecified asthma with (acute) exacerbation; E78.00 Pure hypercholesterolemia, unspecified; I10 Essential (primary) hypertension; R00.8 Other abnormalities of heart beat; Z79.899 Other long term (current) drug therapy; Z88.5 Allergy status to narcotic agent; Z79.1 Long term (current) use of non-steroidal anti-inflammatories (NSAID)
CPT/HCPCS: 36415; 71010; 71260; 80053; 84484; 85027; 87070; 87205; 93005; 93306; 94640; 94760; 96361; 96374; 96375; A6539; J2405; J2920; J2930; J7030; J7512; J7620; Q0144; Q9967; 99285-25

== ENCOUNTER → 2017-07-09 | Outpatient (CLI) | payer BC | END | disposition home or self-care (01) | LOC: CT 10:48 | DX: J32.4 Chronic pansinusitis (principal); M27.40 Unspecified cyst of jaw; M48.02 Spinal stenosis, cervical region | CPT/HCPCS: 70486 ==

== ENCOUNTER 2017-07-10 11:22 | Inpatient (IN) | payer BC ==
[2017-07-10 11:56] LABS: ADD MAN DIFF? NO
[2017-07-10] MEDS ORDERED: 0.9 % SODIUM CHLORIDE 10 ML DISP.SYRIN. IV ×2 (12:00)
[2017-07-10 12:02] LABS: BASO % 0 % (0-3); EOS % 0 % (0-3); HEMATOCRIT 42.3 % (39.0-53.0); HEMOGLOBIN 13.5 g/dL (13.0-17.5); LYMPH # 0.8 x10^3/uL (1.0-4.8); LYMPH % 13 % (24-48); MEAN CORPUSCULAR HEMOGLOBIN 26 pg (25-35); MEAN CORPUSCULAR HGB CONC 32 g/dL (31-37); MEAN CORPUSCULAR VOLUME 80 fL (79-100); MONO # 0.4 x10^3/uL (0.0-1.1); MONO % 6 % (0-9); NEUT # 5.3 x10^3uL (1.8-7.7); NEUT % 81 % (31-73); PLATELET COUNT 223 x10^3/uL (140-400); RED BLOOD COUNT 5.26 x10^6/uL (4.30-5.70); RED CELL DISTRIBUTION WIDTH 15.5 % (11.5-14.5); WHITE BLOOD COUNT 6.6 x10^3/uL (4.0-11.0)
[2017-07-10 12:14] LABS: ANION GAP 14 (6-14); BLOOD UREA NITROGEN 18 mg/dL (8-26); CALCIUM 9.8 mg/dL (8.5-10.1); CARBON DIOXIDE 24 mmol/L (21-32); CHLORIDE 101 mmol/L (98-107); CREATININE 1.3 mg/dL (0.7-1.3); GFR 66.8; GLUCOSE 130 mg/dL (70-99); POTASSIUM 3.5 mmol/L (3.5-5.1); SODIUM 139 mmol/L (136-145)
[2017-07-10 12:19] LABS: ALBUMIN 3.8 g/dL (3.4-5.0); ALK PHOS 67 U/L (46-116); ALT (SGPT) 50 U/L (16-63); AST (SGOT) 28 U/L (15-37); DIRECT BILIRUBIN 0.1 mg/dL (0.0-0.2); LIPASE 197 U/L (73-393); MAGNESIUM 2.1 mg/dL (1.8-2.4); TOTAL BILIRUBIN 0.3 mg/dL (0.2-1.0); TOTAL PROTEIN 7.4 g/dL (6.4-8.2)
[2017-07-10 12:28] LABS: TROPONINI < 0.017 ng/mL (0.000-0.055)
[2017-07-10] MEDS: NITROGLYCERIN SUBLINGUAL 0.4 MG BOTTLE OF 25. SL ×2 (12:29)
[2017-07-10] MEDS: ASPIRIN CHEWABLE 81 MG TABLET. PO ×2 (12:29)
[2017-07-10] MEDS: IV NORMAL SALINE 1000ML BAG 1,000 ML IV ×4 (12:29→18:41)
[2017-07-10 12:33] LABS: NT-PRO BNP 57 pg/mL (0-124)
[2017-07-10 12:33] LABS: CKMB INDEX 1.5 % (0-4); CKMB MASS 6.4 ng/mL (0.0-3.6); CREATINE KINASE 418 U/L (39-308)
[2017-07-10] MEDS: fentaNYL PF VIAL 100 MCG/2 ML VIAL IV ×4 (13:00→21:25)
[2017-07-10 13:06] LABS: BILIRUBIN,URINE NEGATIVE (NEG); CLARITY,URINE CLEAR; COLOR,URINE YELLOW; GLUCOSE,URINE NEGATIVE (NEG); NITRITE,URINE NEGATIVE (NEG); PROTEIN,URINE NEGATIVE (NEG-TRACE); UROBILINOGEN,URINE 0.2 mg/dL (0.2 mg/dL)
[2017-07-10 13:20] LABS: BACTERIA,URINE FEW /HPF (0-FEW); RBC,URINE RARE /HPF (0-2); WBC,URINE RARE /HPF (0-4)
[2017-07-10] MEDS ORDERED: NITROGLYCERIN SUBLINGUAL 0.4 MG BOTTLE OF 25. SL ×2 (13:30)
[2017-07-10] MEDS ORDERED: ACETAMINOPHEN 325 MG TABLET. PO ×2 (13:30)
[2017-07-10] MEDS ORDERED: ONDANSETRON PF 4 MG/2 ML VIAL. IV ×2 (13:30)
[2017-07-10 17:57] LABS: TROPONINI < 0.017 ng/mL (0.000-0.055)
[2017-07-10 19:59] LABS: TROPONINI < 0.017 ng/mL (0.000-0.055)
[2017-07-11] MEDS: IV NORMAL SALINE 1000ML BAG 1,000 ML IV ×4 (02:20→12:46)
[2017-07-11 05:51] LABS: CHOLESTEROL 124 mg/dL (0-200); HDLC 33 mg/dL (40-60); LDLC 81 mg/dL (0-100); NON-HDL CHOLESTEROL 91 mg/dL (0-129); TRIGLYCERIDES 51 mg/dL (0-150); VLDLC 10 mg/dL (0-40)
[2017-07-11 05:52] LABS: CHOLESTEROL/HDL RATIO 3.8
[2017-07-11] MEDS ORDERED: NON FORMULARY ITEM (Fluticasone/Salmeterol (Advair 250-50 Diskus) 1 PUFF) INH ×2 (09:00)
[2017-07-11] MEDS: REGADENOSON 0.4 MG/5 ML DISP.SYRIN. IV ×2 (09:30)
[2017-07-11] MEDS: ALBUTEROL SULFATE 2.5 MG/3 ML NEBU. NEB ×4 (12:00→16:22)
[2017-07-11] MEDS: traMADol 50 MG TABLET PO ×2 (12:44)
[2017-07-11] MEDS: FLUoxetine HCL 10 MG CAPSULE PO ×2 (12:44)
[2017-07-11] MEDS: predniSONE 20 MG TABLET PO ×4 (12:45→15:15)
[2017-07-11] MEDS: amLODIPine BESYLATE 10 MG TABLET PO ×2 (12:45)
[2017-07-11] MEDS: ASPIRIN ENTERIC COATED 81 MG TABLET.DR. PO ×2 (12:45)
[2017-07-11] MEDS: AMOXICILLIN/K CLAV 875/125MG TABLET. PO ×2 (12:45)
[2017-07-11] MEDS: TRIAMTERENE/HCTZ 37.5/25MG TABLET. PO ×2 (12:46)
[2017-07-11] MEDS ORDERED: BUDESONIDE 0.5 MG/2 ML NEBU. NEB ×2 (20:00)
[2017-07-11] MEDS ORDERED: ATORVASTATIN CALCIUM 20 MG TABLET PO ×2 (21:00)
[2017-07-11] MEDS ORDERED: ZOLPIDEM 5 MG TABLET. PO ×2 (21:00)
== END 2017-07-11 19:45 | disposition home or self-care (01) | DRG 204 ==
LOC: ER 11:22 → 6 SOUTH 13:32
DX: R07.81 Pleurodynia (principal); E78.5 Hyperlipidemia, unspecified; R07.89 Other chest pain; G47.33 Obstructive sleep apnea (adult) (pediatric); I10 Essential (primary) hypertension; J32.4 Chronic pansinusitis; M19.90 Unspecified osteoarthritis, unspecified site; J45.909 Unspecified asthma, uncomplicated; K21.9 Gastro-esophageal reflux disease without esophagitis; Z82.49 Family history of ischemic heart disease and other diseases of the circulatory system; Z83.3 Family history of diabetes mellitus; Z87.891 Personal history of nicotine dependence; Z88.8 Allergy status to other drugs, medicaments and biological substances
CPT/HCPCS: 36415; 70486; 71045; 78452; 80048; 80061; 80076; 81001; 82553; 83690; 83735; 83880; 84443; 84484; 85025; 93005; 93017; 94640; 96361; 96374; 96375; 96376; 99285-25; A9500; J2785; J3010; J7030; J7512; J7613

== ENCOUNTER → 2017-11-04 | Outpatient (CLI) | payer BC | END | disposition home or self-care (01) | LOC: KCIC CT 13:48 | DX: J33.9 Nasal polyp, unspecified (principal); J45.909 Unspecified asthma, uncomplicated; I10 Essential (primary) hypertension; Z87.891 Personal history of nicotine dependence | CPT/HCPCS: 70486 ==

== ENCOUNTER → 2018-07-23 | Outpatient (CLI) | payer BC, MEDICARE ==
[2017-12-04 15:00] VITALS: BP 140/76
[~2018-07-23] MED LIST changes: +ACET325T9 PO; +ALBU2.5V8 IH; +ALBU2.5V8 INH; -AMLO10TA2 PO; +AMLO10TA8 PO; +AMOX1TAB11 PO; +CEFEPIME HCL IVP; +DEXA5DRO4 OP; +DOXY100T PO; +FLUO10TA PO; +FLUT1DIS3 INH; -OXYC-323 PO; -OXYC-327 PO; +OXYC1TAB15 PO; +OXYC1TAB19 PO; +PRED20TA PO; -PROVENTIL HFA6.7 GM IH; +TOPI25TA52 PO; +ZOLP10TA PO
--- NOTE | 2018-07-23 16:38 | KCIC ---
Examination: MRI of the left foot without contrast HISTORY: History of peroneal tendinitis, chronic left mid foot pain. COMPARISON: None available Technique: Multiplanar, multisequence MR imaging of the left foot without contrast. FINDINGS: The visualized anterior talofibular ligament, posterior talofibular ligament appear intact. The visualized posterior tibialis tendon, flexor digitorum , flexor halluces longus grossly appears intact. The anterior extensor tendons grossly appears intact. The visualized paranasal longus, peroneus tendons grossly appears intact. There is mild increased signal identified in the distal aspect of the peroneus longus tendon, best visualized on series series 6 image 18 likely mild tendinosis. The visualized Lisfranc ligament appears intact. Mild increased T2 signal identified in the proximal third and fourth metatarsal. Mild degenerative changes identified in the base of the fourth metatarsal. The visualized metatarsophalangeal joints grossly appears unremarkable. Mild increased T2 signal identified in the plantar muscles of the mid foot. The attachment of the plantar fascia grossly appears intact. IMPRESSION: 1. Mild increased T2 signal identified in the distal aspect of the peroneus longus tendon just proximal to its attachment to the base of the first metatarsal could be mild tendinosis. 2. Mild increased T2 signal identified in the plantar muscles of the mid foot, nonspecific. 3. Mild increased T2 signal identified in the proximal third and fourth metatarsals likely could be mild stress reactive change. Electronically signed by: Lonnie Villeda MD (07/23/2018 4:35 PM) [id number]
== END | disposition home or self-care (01) ==
LOC: KCIC MRI 09:47
PROVIDERS: ATTEND Podiatrist
DX: M19.072 Primary osteoarthritis, left ankle and foot (principal)
CPT/HCPCS: 73718

== ENCOUNTER → 2019-02-09 | Outpatient (CLI) | payer MEDICARE ==
[2017-12-04 15:00] VITALS: BP 140/76
--- NOTE | 2019-02-09 16:25 | RAD ---
CHEST PA LATERAL History: Shortness of breath Comparison: November 27, 2017 Findings: 2 views of the chest are submitted. There is no infiltrate, pneumothorax, or effusion. Pericardial cardiac silhouette is within normal limits in size. Impression: 1. There is no radiographic evidence of acute cardiopulmonary disease. Electronically signed by: Cem Louis MD (02/09/2019 4:23 PM) [id number]
== END | disposition home or self-care (01) ==
LOC: RAD 14:13
PROVIDERS: ATTEND Internal Medicine Pulmonary Disease
DX: R06.02 Shortness of breath (principal)
CPT/HCPCS: 71046

== ENCOUNTER → 2021-07-14 | Outpatient (CLI) | payer MEDICARE ==
[2020-11-23 11:00] VITALS: BP 134/98
[~2021-07-14] MED LIST changes: -ALBU2.5V8 IH; +AMLO-187 PO; -AMLO10TA8 PO; +BUDE10.2 IH; +CETI10TA74 PO; +FLAX10003 PO; +GARL10002 PO; +MONT10TA49 PO; +MULT-245 PO; +PROVENTIL HFA6.7 GM IH
--- NOTE | 2021-07-14 09:39 | RAD ---
EXAM: Chest CT without intravenous contrast. HISTORY: Shortness of air. Cigarette smoking.. TECHNIQUE: Computed tomographic images of the chest were obtained without contrast. Multiplanar refor matting was performed. *One or more of the following individualized dose reduction techniques were utilized for this examina tion: 1. Automated exposure control. 2. Adjustment of the mA and/or kV according to patient size. 3. Use of iterative reconstruction technique. COMPARISON: 12/03/2016. FINDINGS: The heart is normal in size. There is coronary artery calcification. There are calcified bi lateral hilar granulomas. There are nonspecific mediastinal and hilar lymph nodes. For reference purp oses, there is a right paratracheal lymph node measuring 1.2 cm. No pathologically enlarged lymph nod e is seen. There is no pneumothorax or pleural effusion. There is no infiltrate. There is a 3 mm nodu le within the left upper lobe (series 2, image 78). This may be endobronchial. There is a cluster lois cified granulomas within the posterior left upper lobe. There is slight scarring within the right mid dle lobe there is minimal posterior dependent atelectasis. There are suspected uncleared secretions w ithin the medial right lower lobe bronchus. There is no acute finding involving the upper abdomen. Th ere is no acute or suspicious osseous finding. IMPRESSION: 1. 3 mm left upper lobe pulmonary nodule. This may be endobronchial. Lung RADS category 2: Low-dose l [place] cancer screening CT in 12 months is recommended. 2. No acute thoracic finding. Electronically signed by: Michaela Rodriguez MD (07/14/2021 9:36 AM) [id number]
== END ==
LOC: CT 09:14
PROVIDERS: ATTEND Internal Medicine Pulmonary Disease
DX: Z12.2 Encounter for screening for malignant neoplasm of respiratory organs (principal); R91.1 Solitary pulmonary nodule; I25.10 Atherosclerotic heart disease of native coronary artery without angina pectoris; J84.10 Pulmonary fibrosis, unspecified; R06.02 Shortness of breath; Z87.891 Personal history of nicotine dependence
CPT/HCPCS: 71250